=== PATIENT | female | born 1965 | race Caucasian/White ===

== ENCOUNTER 2017-09-05 19:30 | Outpatient (CLI) | payer BC | END 2017-09-05 19:31 | disposition home or self-care (01) | LOC: SLEEPLAB 19:30 | PROVIDERS: ATTEND Internal Medicine | DX: G47.33 Obstructive sleep apnea (adult) (pediatric) (principal); R06.3 Periodic breathing | CPT/HCPCS: 95810 ==

== ENCOUNTER 2018-02-25 09:48 | Outpatient (CLI) | payer BC | END 2018-02-25 09:49 | disposition home or self-care (01) | LOC: EKG 09:48 | PROVIDERS: ATTEND Internal Medicine | DX: Z01.810 Encounter for preprocedural cardiovascular examination (principal); I10 Essential (primary) hypertension | CPT/HCPCS: 93005; 93010 ==

== ENCOUNTER 2018-11-09 13:38 | Outpatient (CLI) | payer BC ==
[~2018-11-09 13:38] MED LIST: Sodium Chloride 0.9% 15 ML NEB ONE
--- NOTE | 2018-11-09 21:02 | HP ---
HISTORY OF PRESENT ILLNESS: Ms. Zenobia Armijo is a very pleasant 53-year-old accompanied by her sister, who [facility] for evaluation of an ulceration of the plantar surface of the left foot over the left medial mid foot. The patient's medical history is significant for leukemia in 2014. The patient states that she developed an ulceration over the plantar surface of the right foot afterwards, which healed after podiatric surgery. The patient states that the ulceration over the plantar surface of the left medial midfoot has been present since June of this year. She states that treatment has included offloading with a brace, total contact casting, and treatment with bioengineered skin substitutes, some in conjunction with total contact casting. The patient states that although the depth of the ulceration decreased with treatment with the bioengineered skin substitutes. The ulceration failed to heal completely. The patient was referred to the [facility] by Dr. Jessica Feldman. The patient states that she will be evaluated by Dr. Curtsi Chapman in [place] on 11/23/2018. The patient states that MRI of the left foot has been obtained previously, which was inconclusive in regard to the presence of osteomyelitis associated with the ulceration. She states, therefore, she was placed on p.o. antibiotics and most recently has been prescribed Bactrim for a total of two months. The patient states that she is unable to utilize a knee scooter because of osteoarthritis. PAST MEDICAL HISTORY: 1. Leukemia. 2. Hypertension. 3. Osteoarthritis. PAST SURGICAL HISTORY: 1. Cholecystectomy. 2. Bilateral knee replacements. 3. Left hip replacement. 4. Right foot surgery in October of 2017 and in December of 2017 after a fracture. MEDICATIONS: 1. Vraylar. 2. Quetiapine. 3. Irbesartan. 4. Rosuvastatin. 5. Viibryd. 6. Toprol-XL. 7. Bactrim. ALLERGIES: CODEINE, CHLORAPREP. SOCIAL HISTORY: Social history is negative for tobacco or EtOH use. FAMILY HISTORY: Family history is negative for diabetes mellitus or coronary artery disease. REVIEW OF SYSTEMS: The patient states she underwent MRI of the left foot in August of this year. PHYSICAL EXAMINATION: VITAL SIGNS: Temperature 98.0, pulse 97, respirations 18, blood pressure 130/79. GENERAL: A 53-year-old female, sitting on chair in examination room, in no acute distress. HEENT: Normocephalic and atraumatic. NECK: No nuchal rigidity. CHEST: Clear to auscultation. CV: Regular rate and rhythm. ABDOMEN: Soft. EXTREMITIES: An ulceration of the plantar surface of the left foot over the medial mid foot is present which measures approximately 1.4 x 2.0 cm. No purulent drainage is associated with the wound. Erythema of the skin surrounding the wound is present. No maceration of the skin of the periwound is noted. A dorsalis pedis pulse is easily palpable on the left. No significant edema of the left foot is present on exam today. ASSESSMENT AND PLAN: 1. Ulceration of plantar surface of left foot over the medial midfoot as described above. Dressing changes of Hydrofera Blue will be initiated today. ABDs, Kerlix, and an Caden bandage will be utilized as secondary dressings. These dressing changes are to be performed on a daily basis after cleansing and irrigation with the assistance of the patient's sister. The patient is to continue Bactrim as prescribed by Podiatry. Arrangements will be made for evaluation by Infectious Diseases for osteomyelitis associated with the ulceration. The patient will be notified in regard to the date and time of her appointment with Dr. Espinoza. I will see Ms. Armijo after evaluation by Infectious Diseases. 2. History of leukemia. 3. Hypertension. 4. Osteoarthritis. Job ID: [id number]
== END 2018-11-09 13:39 | disposition home or self-care (01) ==
LOC: WCC 13:38
PROVIDERS: ATTEND Family Medicine
DX: E11.621 Type 2 diabetes mellitus with foot ulcer (principal); L97.529 Non-pressure chronic ulcer of other part of left foot with unspecified severity; E11.69 Type 2 diabetes mellitus with other specified complication; M86.9 Osteomyelitis, unspecified; M19.90 Unspecified osteoarthritis, unspecified site; I10 Essential (primary) hypertension; Z85.6 Personal history of leukemia
CPT/HCPCS: A4218

== ENCOUNTER 2024-08-26 11:57 | Outpatient (CLI) | payer BC | END 2024-08-26 11:58 | disposition home or self-care (01) | LOC: SCSMRI 11:57 | PROVIDERS: ATTEND Nurse Practitioner Family | DX: E11.621 Type 2 diabetes mellitus with foot ulcer (principal); L97.512 Non-pressure chronic ulcer of other part of right foot with fat layer exposed; L97.522 Non-pressure chronic ulcer of other part of left foot with fat layer exposed; M14.671 Charcot's joint, right ankle and foot; M14.672 Charcot's joint, left ankle and foot; C91.41 Hairy cell leukemia, in remission; N02.B1 Recurrent and persistent immunoglobulin A nephropathy with glomerular lesion; L95.8 Other vasculitis limited to the skin; L08.9 Local infection of the skin and subcutaneous tissue, unspecified; M25.871 Other specified joint disorders, right ankle and foot; M21.271 Flexion deformity, right ankle and toes; R93.7 Abnormal findings on diagnostic imaging of other parts of musculoskeletal system; M62.571 Muscle wasting and atrophy, not elsewhere classified, right ankle and foot ==

== ENCOUNTER 2025-01-05 15:32 | Outpatient (CLI) | payer BC | END 2025-01-05 15:33 | disposition home or self-care (01) | LOC: BICCT 15:32 | PROVIDERS: ATTEND Psychiatry & Neurology Neurology | DX: R51.9 Headache, unspecified (principal) | CPT/HCPCS: 70450 ==